=== PATIENT | female | born 2000 | race African-American/Black ===

== ENCOUNTER 2021-08-25 17:44 | Emergency (ER) | payer BC, OTHER ==
[~2021-08-25] VITALS: Ht 157.5 cm; Wt 63.5 kg
[2021-08-25 18:47] LABS: URINE BILIRUBIN 1+ (Negative); URINE BLOOD NEGATIVE (Negative); URINE CLARITY SL CLOUDY; URINE COLOR YELLOW; URINE GLUCOSE-RANDOM* NEGATIVE (Negative); URINE KETONES 3+ (Negative); URINE LEUKOCYTES-REFLEX NEGATIVE (Negative); URINE NITRITE-REFLEX NEGATIVE (Negative); URINE PROTEIN (DIPSTICK) 1+ (Negative); URINE SPECIFIC GRAVITY >= 1.030 (1.005-1.035); URINE UROBILINOGEN 0.2 E.U./dl (0.2-1.0)
[2021-08-25 18:51] LABS: ICTOTEST (BILI CONFIRMATORY) Negative (Negative)
[2021-08-25 18:59] LABS: MUCUS 4-6 Moderate strn/LPF (None Seen); SQUAMOUS >10 Many /LPF (0-3)
[2021-08-25 19:00] LABS: BACTERIA-REFLEX 1-9 Few /HPF (None Seen); CASTS None Seen /LPF (None Seen); CRYSTALS None Seen /LPF (None Seen); URINE RBC 1-2 Rare /HPF (NONE SEEN); URINE WBC-REFLEX 0-5 Rare /HPF (0-5)
[2021-08-25] MEDS ORDERED: AMOXICILLIN500 M1 PO (19:03)
[2021-08-25 21:56] VITALS: BP 117/72
== END 2021-08-25 19:50 | disposition home or self-care (01) ==
LOC: ER 17:44
PROVIDERS: Nurse Practitioner
DX: J02.0 Streptococcal pharyngitis (principal); Z20.822 Contact with and (suspected) exposure to COVID-19; R50.9 Fever, unspecified; I10 Essential (primary) hypertension; F12.90 Cannabis use, unspecified, uncomplicated; Z98.890 Other specified postprocedural states